=== PATIENT | female | born 1960 | race Caucasian/White ===

== ENCOUNTER 2017-06-29 15:56 | Outpatient (CLI) | payer OTHER ==
--- NOTE | 2017-06-30 09:20 | XRAY Report ---
THREE-VIEW LEFT FOOT: 06/29/2017 CLINICAL INDICATION: Metatarsal pain. FINDINGS: AP, lateral, oblique views of the left foot demonstrate no evidence of fracture or disloca tion. Mild osteoarthritis is noted at the 1st metatarsophalangeal joint. No radiopaque foreign body is seen in the soft tissues. IMPRESSION: MILD OSTEOARTHRITIS OF THE 1ST METATARSOPHALANGEAL JOINT. JOB #: [id number] EXT JOB #:[id number]
== END 2017-06-29 15:57 | disposition home or self-care (01) ==
LOC: DI.S 15:56
PROVIDERS: ATTEND Nurse Practitioner Family
DX: M19.072 Primary osteoarthritis, left ankle and foot (principal)

== ENCOUNTER 2017-06-29 16:00 | Outpatient (CLI) | payer OTHER ==
[2017-06-30 10:26] LABS: BASOPHILS % (AUTO) 0.2 %; EOSINOPHILS # (AUTO) 0.1 10^3/uL (0.0-0.7); EOSINOPHILS % (AUTO) 0.9 %; HCT - HEMATOCRIT 42.2 % (37.0-47.0); HGB - HEMOGLOBIN 14.3 g/dL (12.0-16.0); LYMPHOCYTES # (AUTO) 1.9 10^3/uL (1.5-3.5); LYMPHOCYTES % (AUTO) 18.8 %; MEAN CORPUSCULAR HEMOGLOBIN 33.2 pg (27.0-31.0); MEAN CORPUSCULAR HGB CONC 33.9 g/dL (32.0-36.0); MEAN CORPUSCULAR VOLUME 97.8 fL (81.0-99.0); MONOCYTES # (AUTO) 0.6 10^3/uL (0.0-1.0); MONOCYTES % (AUTO) 5.9 %; NEUTROPHILS # (AUTO) 7.6 10^3/uL (1.5-6.6); NEUTROPHILS % (AUTO) 74.2 %; NUCLEATED RED BLOOD CELLS AUTO 0.1 /100WBC; RED BLOOD COUNT 4.31 10^6/uL (4.20-5.40); UNCORRECTED WHITE BLOOD COUNT 10.3 x10^3/uL; WHITE BLOOD COUNT 10.3 x10^3/uL (4.8-10.8)
== END 2017-06-29 16:01 | disposition home or self-care (01) ==
LOC: LAB.S 16:00
PROVIDERS: ATTEND Nurse Practitioner Family
DX: M25.579 Pain in unspecified ankle and joints of unspecified foot (principal)
CPT/HCPCS: 36415; 84550; 85025

== ENCOUNTER 2021-09-02 12:08 | Outpatient (CLI) | payer OTHER ==
[2021-09-02] MEDS ORDERED: IOVERSOL 320 50 ML VIAL ONE (12:29)
[2021-09-02] MEDS ORDERED: IOVERSOL 320 100 ML VIAL IVP ONE ×2 (12:29→13:51)
[2021-09-02] MEDS ORDERED: IOVERSOL 320 50 ML VIAL PO ONE (13:51)
--- NOTE | 2021-09-02 15:07 | CT Report ---
PROCEDURE: Abdomen/Pelvis W INDICATIONS: CIGARETTE SMOKER, ABD MASS CONTRAST: IV CONTRAST: Optiray 320 ml: 100 PO CONTRAST: Optiray 320 ml50 TECHNIQUE: After the administration of IV and oral contrast, 5 mm thick sections acquired from the diaphragms to the symphysis. 5 mm thick coronal and sagittal reformats were acquired. For radiation dose reducti on, the following was used: automated exposure control, adjustment of mA and/or kV according to reena ent size. COMPARISON: None. FINDINGS: ABDOMEN: Lung bases: No acute findings. Heart:Normal in size. No pericardial effusion. Liver: Hepatic steatosis otherwise unremarkable Gallbladder: Normal. Bile ducts: Normal. Pancreas: Normal. Spleen: Normal. Adrenals: Normal. Kidneys and ureters: Normal. Stomach and duodenum: Normal. Bowel: Normal. Normal appearance of the appendix. Colonic diverticulosis incidentally noted without e vidence of acute inflammation. Other: No free fluid or air. Abdominal nodes: Normal. Aorta: Normal in size. IVC: Normal. Ventral wall: Normal. PELVIS: Bladder: Normal. Pelvic nodes: Normal. Inguinal: No hernia. Bones: No vertebral body compression fracture. No suspicious bone lesion. IMPRESSION: No discrete mass identified. No lymphadenopathy Hepatic steatosis. No acute findings. Reviewed by: Luis Rodriguez MD on 09/02/2021 3:05 PM PDT Approved by: Luis Rodriguez MD on 09/02/2021 3:05 PM PDT Station ID: [id number]
--- NOTE | 2021-09-03 19:01 | CT Report ---
PROCEDURE: Low Dose Lung Cancer Screen INDICATIONS: CIGARETTE SMOKER, ABD MASS TECHNIQUE: Noncontrast low-dose images were acquired from the pulmonary apices to the posterior costophrenic ang les. Multiplanar MIP reformats were then acquired. For radiation dose reduction, the following was used: automated exposure control, adjustment of mA and/or kV according to patient size. COMPARISON: None. FINDINGS: Image quality: Excellent. Lungs and pleura: Lungs and pleural spaces are clear without evidence of nodule, infiltrate or pleur al effusion. No pneumothorax. Mediastinum: Heart size is normal. No pericardial effusion. No mediastinal adenopathy by size crit eria. Thoracic aorta and central pulmonary arteries are normal in size. Esophagus is normal in harris vimal. No hiatal hernia. Mild sclerotic vascular calcification noted associated with the aortic arch. Bones and chest wall: No suspicious bony lesions. No vertebral body compression fractures. No axil donovan or supraclavicular adenopathy by size criteria. The thyroid is normal in size and there are no incidental findings. Abdomen: Visualized upper abdomen solid organs and bowel loops appear normal in the absence of contr ast. IMPRESSION: 1. Mild atherosclerotic vascular calcification without pulmonary nodule. Lung RADS category 1: Continue annual screening. Reviewed by: Harjit Jimenez MD on 09/03/2021 5:59 PM [email or web address] Approved by: Harjit Jimenez MD on 09/03/2021 5:59 PM AKDT Station ID: [id number]
== END 2021-09-02 12:09 | disposition home or self-care (01) ==
LOC: DI 12:08
PROVIDERS: ATTEND Nurse Practitioner Family
DX: Z12.2 Encounter for screening for malignant neoplasm of respiratory organs (principal); R19.00 Intra-abdominal and pelvic swelling, mass and lump, unspecified site; K76.0 Fatty (change of) liver, not elsewhere classified; F17.210 Nicotine dependence, cigarettes, uncomplicated; I70.0 Atherosclerosis of aorta
CPT/HCPCS: 71271; 74177; Q9967

== ENCOUNTER 2021-09-02 12:15 | Outpatient (CLI) | payer OTHER ==
--- NOTE | 2021-09-03 08:03 | Mammography Report ---
BILATERAL DIGITAL SCREENING MAMMOGRAM 3D/2D: 09/02/2021 CLINICAL: Routine screening. Comparison is made to exams dated: 10/26/2012 mammogram, 10/17/2010 mammogram, and 10/08/2010 mammogr am - [facility]. There are scattered fibroglandular elements in both breasts. There is a possible new irregular equal density asymmetry with a spiculated margin in the right breas t middle depth lateral region seen on the craniocaudal view only. No other significant masses, calcifications, or other findings are seen in either breast. IMPRESSION: INCOMPLETE: NEEDS ADDITIONAL IMAGING EVALUATION The possible new irregular equal density asymmetry in the right breast is indeterminate. Additional views with possible ultrasound are recommended. This exam was interpreted at Station ID: [id number]. NOTE: For mammograms, a report in lay terms will be sent to the patient. Approximately 15% of breast malignancies will not be visualized mammographically. In the management of a palpable breast mass, a negative mammogram must not discourage biopsy of a clinically suspicious lesion. Electronically Signed By: Elisa [email or web address]/tika:09/02/2021 17:13:29 ACR BI-RADS Category 0: Incomplete 3340F PARENCHYMAL PATTERN: (A) - The breast(s) demonstrate(s) scattered fibroglandular densities. BI-RADS CATEGORY: (0) - 0 Mammo and [place] [id number] Immediate follow-up LATERALITY: (B)
== END 2021-09-02 12:16 | disposition home or self-care (01) ==
LOC: DI 12:15
PROVIDERS: ATTEND Nurse Practitioner Family
DX: Z12.31 Encounter for screening mammogram for malignant neoplasm of breast (principal); R92.8 Other abnormal and inconclusive findings on diagnostic imaging of breast